=== PATIENT | female | born 1970 | race Caucasian/White ===

== ENCOUNTER 2022-06-20 19:25 | Observation (INO) | payer BC, SELFPAY ==
[2022-06-20] VITALS (13 sets, daily range): BP systolic 131–153; BP diastolic 79–97; PULSE 68–104; RESP 12–35; TEMP 36.7–37.4; O2SAT 98–100
--- NOTE | 2022-06-20 | DI.CT_ITS ---
Exam(s) CT LOWER EXTREMITY LT WO EXAM: CT LOWER EXTREMITY LT WO CLINICAL HISTORY: L ankle fracture dislocation. TECHNIQUE: Imaging Protocol: Axial computed tomography images with coronal and sagittal reformatted images were created and reviewed. CONTRAST MATERIAL: Noncontrast COMPARISON: CR,XR XR ANKLE LT COMPLETE from 06/20/2022 FINDINGS: Bones: There is an oblique fracture through the distal tibial diaphysis with a full shaft width of la teral displacement and a few adjacent tiny comminuted fragments. A few tiny fracture fragments are s een adjacent to the posterior aspect of the distal tibia. A small density beneath the tip of the med ial malleolus may represent acute fracture fragment versus and inferior spur. There is marked wide jake of the medial ankle mortise. The talar dome appears intact. Heel spurs are noted. Small ossic les adjacent to navicular. Bone island in navicular. Soft Tissues: Swelling along region of distal fibular fracture and around the ankle. No drainable c ollection. IMPRESSION: Displaced distal fibular fracture and marked widening of the medial ankle mortise. Tiny fracture fra gments seen from the posterior tibial plateau. Question of spur versus nondisplaced fracture at the tip of the medial malleolus. RADIATION DOSE DELIVERED: 415.29mGy.cm Total DLP DATA REPOSITORY: All CT scans at this facility are submitted to the National Radiology Data Registry (NRDR) Dose Index Registry (DIR) with the [employer] ([employer]). RADIATION OPTIMIZATION: All CT scans at this facility use at least one of these dose optimization te chniques: automated exposure control; mA and/or kV adjustment per patient size (includes targeted exa ms where dose is matched to clinical indication); or iterative reconstruction.
--- NOTE | 2022-06-20 19:30 | DI.RAD_ITS ---
Exam(s) XR ANKLE LT COMPLETE EXAM: XR ANKLE LT COMPLETE CLINICAL HISTORY: fall with ankle injury TECHNIQUE: 2D digital imaging was performed. Three views. COMPARISON: No exams were available for comparison FINDINGS: BONES: Fracture of the distal diaphysis of the of the fibula with full shaft width displacement later ally and few comminuted fragments. Small fracture fragments seen at the tip of the medial malleolus and adjacent to the lateral aspect of the distal tibia. Talar dome appears intact. Incidental heel spurs. No bony destructive lesion is seen. JOINTS:Marked widening of the medial ankle mortise with significant lateral displacement of the talus with respect to the distal tibia. SOFT TISSUE: Marked soft tissue swelling around the malleoli. IMPRESSION: Distal fibular fracture and marked widening of the ankle mortise. A few tiny bony fragments are note d which are likely fractured from the distal tibia. DATA REPOSITORY: RADIATION DOSE DELIVERED:
[2022-06-20] MEDS: ACETAMINOPHEN 1,000 MG/100 ML BTL 400 MG IVPB (19:52)
--- NOTE | 2022-06-20 20:09 | ED.GENADUL_ITS ---
Discharge Plan Disposition Patient Disposition: Admit to [facility] Discharge Details Clinical Impression: Closed fibular fracture Admit Date/Time: 06/20/22 20:32 Admit Provider: Reyes Walters Attending Provider: Reyes Waltesr [facility] Provider: Pilo Jennings Medical Decision Making Patient presenting to the emergency department for chief complaint of mechanical fall with injury to left ankle. Patient states she is not weightbearing. Physical exam shows obvious deformity to left ankle with displacement or dislocation medially. Exam is otherwise unremarkable with no tenderness noted throughout rest of tib-fib or foot. Will perform radiological imaging for high suspicion of fracture and/or dislocation. Patient does not want any narcotics to start with so we will give IV Tylenol. Review of radiological imaging shows a significant fracture of the fibula with displacement of the ankle. Contacted orthopedist on-call who recommended posterior splinting and CT imaging after splinting with patient to be admitted and to go to the OR tomorrow. Patient is in agreement with this plan of care due to the fact that she would have difficulty getting in home with significant fracture and pain. For splinting we did use 50 of fentanyl. Patient remained stable and was admitted to inpatient unit pending OR Imaging Data Radiologic Study: Attestation: I personally reviewed and interpreted this imaging study as follows: Imaging: X-Ray Radiologist's impression: PROCEDURE INFORMATION: Exam: XR Left Ankle Exam date and time: 06/20/2022 8:07 PM Age: 51 years old Clinical indication: Other: Fall with ankle injury TECHNIQUE: Imaging protocol: Radiologic exam of the left ankle. Views: 3 or more views. COMPARISON: No relevant prior studies available. FINDINGS: Bones/joints: Widening of the ankle mortise. Fracture of the left distal fibula through the distal 3rd of the diaphysis. Posterior calcaneal enthesophytes. Lateral view demonstrates small osseous fragment posterior to the distal tibia, donor site is not identified. Soft tissues: Soft tissue swelling. IMPRESSION: Fracture of the left distal fibula. Widening of the ankle mortise. No other fractures visualized, consider radiographs of the left tibia and fibula. HPI General Mode of arrival: wheelchair . Date/Time Provider Initiated Documentation: 06/20/22 19:34 . Limitations to Documentation: no limitations . Information obtained by: patient . History of Present Illness 51 year old F presents to the emergency department with the chief complaint of Left ankle injury, described as moderate and severe, with intensity rated at 8. Quality is described as aching and sharp, and is localized to the left and lower extremity. Patient reports no radiation. Patient started experiencing this hour(s) (1) and it has been constant. No relieving factors improve symptom(s), No exacerbating factors reported . Patient notes no other symptoms.. Patient did receive the following treatments prior to arrival, none Related Data Home Medications Medication Instructions Recorded Confirmed levothyroxine 25 mcg tablet mcg 06/20/22 Allergies Allergy/AdvReac Type Severity Reaction Status Date / Time No Known Allergies Allergy Unverified 06/20/22 19:54 General Stated Complaint: Orthopedic APURVA: 4 Review of Systems Narrative: 6 systems reviewed and unremarkable except what is marked below. Musculoskeletal Musculoskeletal: Reports arthralgias, Reports joint swelling, Reports limited range of motion, Denies numbness and Denies tingling Integumentary/Breasts Skin/Breast: Denies wounds Neurologic Neurologic: Denies numbness and Denies tingling PFSH All Active Problems (Updated 06/20/22 @ 21:28 by Pilo Jennings NP) Closed fibular fracture (Acute) Hypothyroidism (Chronic) Social History Smoking/Tobacco Use Status: Never Smoking risk assessment performed?: Yes Alcohol Intake: current Alcohol Intake frequency: a few times a week Alcohol type: wine Substance use type: does not use Do you feel safe at home: Yes Do you feel safe in your relationship?: Yes Exam Const General: cooperative and in distress moderate Nutritional Appearance: obese Orientation: alert, awake and oriented x3 Resp Effort & Inspection: normal respiratory effort, able to speak in complete sentences and no respiratory distress Cardio Rate: regular rate Rhythm: regular rhythm Pulses: normal peripheral pulses Skin General skin exam: no rashes or lesions noted Neuro General: patient alert, patient awake, patient oriented x3, moves all extremities and no focal motor deficits Sensory Exam: no sensory deficits noted Extrem Left lower extremity: knee Details: no tenderness, lower leg Details: no tenderness, ankle Details: abnormal to inspection (Obvious deformity to medial ankle), tenderness Location: of the lateral malleolus and of the medial malleolus, swelling Details: diffusely and abnormal ROM (Pain with even slight movement of ankle); no lacerations and no ecchymosis and foot Details: normal capillary refill, normal to inspection, toes with normal ROM, vascular exam Details: dorsalis pedis pulse present and normal capillary refill and motor- sensory exam Details: two point discrimination normal and light-touch normal; no abrasions, no lacerations and no ecchymosis Course Vital Signs Vital signs: Vital Signs Temperature 37.4 C 06/20/22 19:33 Pulse 104 H 06/20/22 19:33 Respiratory Rate 18 06/20/22 19:33 Blood Pressure 144/97 H 06/20/22 19:33 Pulse Oximetry 98 06/20/22 19:33 Temperature 37.4 C 06/20/22 19:33 Temperature Source Tympanic 06/20/22 19:33 Pulse 104 H 06/20/22 19:33 Respiratory Rate 18 06/20/22 19:33 Respiratory Effort Normal 06/20/22 19:37 Blood Pressure 144/97 H 06/20/22 19:33 Blood Pressure Position Supine 06/20/22 19:33 Pulse Oximetry 98 06/20/22 19:33 Oxygen Delivery Method Room Air 06/20/22 19:33 Oxygen Flow Rate 0 06/20/22 19:33 Pain Level 10 06/20/22 19:52 Procedures Orthopedic Splinting/Casting Injury #1: Side: left Lower Extremity Injury Location: ankle Lower Extremity Immobilizer: posterior splint PAWSS Have you Been Recently Intoxicated or Drunk Within the Last 30 days?: No Have you Ever Experienced Previous Episodes of Alcohol Withdrawal?: No Have you ever Experienced Withdrawal Seizures?: No Have you ever Experienced Delirium Tremens(DT)s?: No Have you ever undergone Alcohol Rehabilitation Treatment (i.e, inpt ot outpatient treatment programs)?: No Have you ever Experienced Blackouts?: No Have you ever Combined Alcohol with other Downers within the last 90 days?: No Have you ever Combined Alcohol with any other Substance of Abuse during the last 90 days?: No Positive Blood Alcohol level on Presentation? [PCS.BAL]: No Evidence of Increased Autonomic Activity (i.e. HR>120, tremor, sweating, agitation, nausea)?: No Result: 0
--- NOTE | 2022-06-20 20:33 | DI.VRAD_ITS ---
PROCEDURE INFORMATION: Exam: XR Left Ankle Exam date and time: 06/20/2022 8:07 PM Age: 51 years old Clinical indication: Other: Fall with ankle injury TECHNIQUE: Imaging protocol: Radiologic exam of the left ankle. Views: 3 or more views. COMPARISON: No relevant prior studies available. FINDINGS: Bones/joints: Widening of the ankle mortise. Fracture of the left distal fibula through the distal 3rd of the diaphysis. Posterior calcaneal enthesophytes. Lateral view demonstrates small osseous fragment posterior to the distal tibia, donor site is not identified. Soft tissues: Soft tissue swelling. IMPRESSION: Fracture of the left distal fibula. Widening of the ankle mortise. No other fractures visualized, consider radiographs of the left tibia and fibula. Dictated and Authenticated by: Indio Ramírez MD. Ordering:JASSON Daigle MD
[2022-06-20] MEDS: fentaNYL 100 MCG/2 ML VIAL 50 MCG IVP (20:39)
[2022-06-20 21:08] LABS: HCT 41.7 % (36.0-46.0); HGB 14.2 g/dL (11.2-15.7); MCH 30.9 pg (27.0-33.0); MCHC 34.1 % (32.0-36.0); MCV 91 fL (80-95); MPV 9.4 fL (8.0-11.0); Platelet Count 343 10^3/uL (130-400); RBC 4.59 10^6/uL (3.93-5.22); RDW 12.8 % (11.7-14.6); RDW-SD 41.7 fL
[2022-06-20] MEDS: Normal Saline 1,000 ML 80 ML IV (21:14)
[2022-06-20 21:20] LABS: Source Nasal/Nares
[2022-06-20 21:25] LABS: Hemoglobin A1C 6.7 % (<5.7)
--- NOTE | 2022-06-20 21:29 | DI.VRAD_ITS ---
PROCEDURE INFORMATION: Exam: CT Left Lower Extremity Without Contrast; Lower Leg Exam date and time: 06/20/2022 9:03 PM Age: 51 years old Clinical indication: Injury or trauma; Fall; Fracture, traumatic; Displaced; Left; Shaft of the fibula; Injury date: 06/20/22; Injury details: L ankle FX, dislocation TECHNIQUE: Imaging protocol: CT of the left lower extremity without contrast was performed. Exam focused on the lower leg. Radiation optimization: All CT scans at this facility use at least one of these dose optimization techniques: automated exposure control; mA and/or kV adjustment per patient size (includes targeted exams where dose is matched to clinical indication); or iterative reconstruction. COMPARISON: CR XR ANKLE LT COMPLETE 06/20/2022 8:07 PM FINDINGS: Bones/joints: Laterally displaced fracture of the left distal fibular diaphysis. Widening of the ankle mortise. Posterior calcaneal enthesophytes. Linear densities posterior to the left distal tibia, indeterminate clinical significance. Soft tissues: Soft tissue swelling/infiltration. IMPRESSION: Fracture of the left fibular diaphysis with lateral displacement. No other acute fractures identified. Dictated and Authenticated by: Indio Ramírez MD. Ordering:CHANEL Chambers MD
[2022-06-20 21:34] LABS: ALT 70 U/L (14-59); AST 35 U/L (15-37); Albumin 3.7 g/dL (3.4-5.0); Alkaline Phosphatase 75 U/L (46-116); BUN 13 mg/dL (7-18); Bilirubin, Total 0.3 mg/dL (0.2-1.0); CREATININE 0.8 mg/dL (0.55-1.02); Calcium 8.8 mg/dL (8.5-10.1); Chloride 103 mmol/L (98-107); Estimated GFR 89.15 (mL/min/1.73m2); Glucose 118 mg/dL (74-106); Sodium 138 mmol/L (136-145); TSH (W/Ref FT4) 6.14 uIU/mL (0.36-3.74); Total Protein 8.1 g/dL (6.4-8.2)
[2022-06-20] MEDS: Ketorolac 15 MG/ML VIAL IVP (21:38)
[2022-06-20 21:46] LABS: Vitamin D 25 Total 10.7 ng/mL (30-100)
[2022-06-20 21:50] LABS: FREE T4 1.12 ng/dL (0.76-1.46)
[2022-06-20 21:52] LABS: COVID-19 PCR Negative (Negative)
[2022-06-20] MEDS: HYDROmorphone 2 MG/ML SYR 0.5 MG IVP (22:13)
[2022-06-21] VITALS (10 sets, daily range): BP systolic 104–143; BP diastolic 52–88; PULSE 58–86; RESP 12–20; TEMP 36–36.7; O2SAT 96–99; BMI 41.0
[2022-06-21] MEDS: HYDROmorphone 2 MG/ML SYR 0.5 MG IVP ×3 (00:18→08:51)
[2022-06-21] MEDS: Ketorolac 15 MG/ML VIAL IVP ×4 (03:00→22:14)
--- NOTE | 2022-06-21 05:42 | OCONE_ITS ---
Date of service: 06/21/22 Time of Service: 07:35 History of Present Illness History of Present Illness Chief Complaint: Left Ankle Pain and Deformity Narrative: Cordelia slipped on some stairs yesterday resulting in a twisting type injury to the left ankle. She had immediate pain and deformity. She was brought to the emergency department and diagnosed with a left ankle fracture dislocation. I was called in consultation last night. A gentle reduction was performed and she was splinted and admitted overnight for pain control and likely surgical fixation. She reports that the pain has been intermittent about the left ankle depending on positioning. She denies any numbness or tingling although she did feel some initially when it happened. When it happened she also reported hearing significant pops and a tearing sensation about the left ankle. She denies any issues with this left ankle previously. She is otherwise active. She only has hypothyroidism as her medical issue and is unaware of how much levothyroxine she takes. She was diagnosed with early diabetes and has been able to manage that mostly with diet control and modification. 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 She denies any baseline neuropathy. Consults Consult date: 06/20/22 Requesting physician: Pilo Jennings Consult Reason Left Ankle Fracture-Dislocation Assessment and Plan Assessment and plan (1) Fracture dislocation of left ankle: Status: Acute Assessment and plan: Cordelia is a 51-year-old who suffered a fall yesterday resulting in a left ankle fracture dislocation. This would benefit from surgical fixation. I discussed this with her in detail. I reviewed that the fracture of the fibula is only one part of this. Unfortunately, this is associated with significant ligamentous injury about the ankle both medially and between the tibia and the fibula. I discussed treatment options and recommend surgical fixation to include fibular fixation along with syndesmotic fixation. I would also consider medial, deltoid ligament, fixation as well given the amount of displacement. I reviewed the technical aspects of the surgery. I discussed some of the risk to include bleeding, infection, pain, stiffness, malunion, nonunion, loss of reduction, hardware failure, blood clot, need for repeat procedures. Despite these risk, s he elects to proceed. I also spent some time reviewing the timeframe for rehabilitation. All of her questions were answered. We will move forward with surgery today, likely later this afternoon. NPO. She does have low vitamin D levels and I would recommend we supplement vitamin D and calcium in the postoperative period. (2) Diabetes mellitus type 2, diet-controlled: Status: Acute Assessment and plan: Currently diet controlled. Will check blood sugars while here in the hospital. Review of Systems All systems reviewed & are unremarkable except as noted in HPI and below PFSH All Active Problems (Updated 06/21/22 @ 08:01 by Reyes Walters MD) Diabetes mellitus type 2, diet-controlled (Acute) Fracture dislocation of left ankle (Acute) Closed fibular fracture (Acute) Hypothyroidism (Chronic) Social History Smoking/Tobacco Use Status: Never Smoking risk assessment performed?: Yes Alcohol Intake: current Alcohol Intake frequency: a few times a week Alcohol type: wine Substance use type: does not use Do you feel safe at home: Yes Do you feel safe in your relationship?: Yes Exam Const General: cooperative, healthy appearing, comfortable and no acute distress Resp Auscultation: clear to auscultation bilaterally Cardio Rate: regular rate Rhythm: regular rhythm Extrem Other: Left leg is in a splint. Toes are warm and well-perfused. She is able to demonstrate active toe extension and flexion. She endorses full sensation over the deep and superficial peroneal nerve and tibial nerve. No pain to palpation about the knee or the proximal left leg. No pain about the thigh. No pain with hip internal or external rotation. No skin abrasions. Results Last Vital Signs Temp 36.7 C 06/21/22 03:47 Pulse 83 06/21/22 03:47 Resp 20 06/21/22 03:47 BP 130/78 06/21/22 03:47 Pulse Ox 97 06/21/22 03:47 Labs 06/20/22 20:13 06/20/22 20:13 Labs: Laboratory Results - last 24 hr 06/20/22 06/20/22 06/20/22 20:13 20:13 20:13 WBC RBC Hgb Hct MCV MCH MCHC RDW Plt Count MPV Sodium 138 Potassium 4.0 Chloride 103 Carbon Dioxide 23.0 Anion Gap 12.0 H BUN 13 Creatinine 0.8 Est GFR (CKD-EPI 2020) 89.15 Glucose 118 H Hemoglobin A1c Calcium 8.8 Total Bilirubin 0.3 AST 35 ALT 70 H Alkaline Phosphatase 75 Total Protein 8.1 Albumin 3.7 Cancelled 25-OH Vitamin D Total 10.7 L TSH 6.14 H Free T4 1.12 COVID-19 Source SARS-CoV-2 (PCR) 06/20/22 06/20/22 06/20/22 20:13 20:13 21:16 WBC 9.90 RBC 4.59 Hgb 14.2 Hct 41.7 MCV 91 MCH 30.9 MCHC 34.1 RDW 12.8 Plt Count 343 MPV 9.4 Sodium Potassium Chloride Carbon Dioxide Anion Gap BUN Creatinine Est GFR (CKD-EPI 2020) Glucose Hemoglobin A1c 6.7 H Calcium Total Bilirubin AST ALT Alkaline Phosphatase Total Protein Albumin 25-OH Vitamin D Total TSH Free T4 COVID-19 Source Nasal/Nares SARS-CoV-2 (PCR) Negative Imaging Imaging Studies: X-ray of the left ankle demonstrates an ankle fracture dislocation with posterior lateral displacement of the talus. There is an oblique distal third fibular shaft fracture. There appears to be some small fragmentation over the posterior aspect of the medial tibia and questionably over the medial malleolus. However, there is no clear posterior malleolar or medial malleolar fragment. CT scan of the left ankle and leg demonstrates the aforementioned fracture. There is some fragmentation seen at the posterior medial aspect of the tibia. However, is not associated with any true posterior malleolar fracture. There is no articular involvement. There appears to be an old fracture or avulsion injury to the tip of the medial malleolus.
[2022-06-21] MEDS: ceFAZolin 1 GM/50 ML BAG IVPB (05:45)
[2022-06-21] MEDS: ACETAMINOPHEN 1,000 MG/100 ML BTL 400 MG IVPB ×2 (06:45→11:49)
--- NOTE | 2022-06-21 08:54 | INITIAL_ITS ---
- If Service Date Differs Date of service: 06/21/22 Time of Service: 08:54 Care Management Initial Assess REASON FOR HOSPITALIZATION:: left ankle fracture PAST MEDICAL HISTORY/PAST SURGICAL HISTORY:: All Active Problems (Updated 06/21/22 @ 08:01 by Reyes Walters MD). Diabetes mellitus type 2, diet- controlled (Acute). Fracture dislocation of left ankle (Acute). Closed fibular fracture (Acute). Hypothyroidism (Chronic) PREVIOUS FUNCTIONAL STATUS/SOCIAL/FAMILY SUPPORTS:: Cordelia recently moved from [facility] to [place], [place] She works for [employer] in the [facility]. Currently Cordelia is staying with a friend but has rented an apartment in the [facility] available on July 17. She is independent at baseline and does not receive any community services.She has one 19 year old daughter who attends college. CURRENT FUNCTIONAL STATUS:: Cordelia had just returned from surgery when CM met with her. She was still sleepy and slow to respond to questions. Cordelia did share that [place] and will be moving to the [facility] in July. She has not seeen PT yet but expects to work with them tomorrow and likely be discharged home later in the day. ADVANCE DIRECTIVES:: none on file Has patient been provided with info about the portal/API?: Yes Did the patient sign up for the portal?: No CODE STATUS:: Full Code INSURANCE COVERAGE / FINANCIAL ISSUES:: /[facility] CURRENT HOME/COMMUNITY SERVICES/EQUIPMENT:: none PRIMARY CARE PHYSICIAN:: none locally POTENTIAL DISCHARGE NEEDS:: follow up with local orthopedic surgeon PATIENT/FAMILY EDUCATION NEEDS:: REview of discharge instructions, activity, limitations, follow up plan, discuss Ask Me Three. TRANSPORTATION:: via private vehicle with family PLAN:: Anticipate that Cordelia will be discharged home when cleared by her provider. She will follow up with her surgeon and plan of care and transport with her daughter. Cordelia does not have a local PCP but as she is soon moving to the [facility], will likely establish with a new PCP there. CM will follow and support discharge needs.
--- NOTE | 2022-06-21 13:23 | W.ANESPRE ---
General Info Date of Service Date Performed: 06/21/22 Height: 5 ft Weight: 95.2 kg Body Mass Index (BMI): 41.0 Surgical Procedure: Operation Date: 06/21/22 14:55 Proposed Procedure Side Surgeon p Ankle ORIF Left Reyes Walters MD Meds Allergies and Home Medications Allergies Allergy/AdvReac Type Severity Reaction Status Date / Time No Known Allergies Allergy Unverified 06/20/22 19:54 Home Medication Medication Instructions Recorded levothyroxine 25 mcg tablet mcg 06/20/22 Current Visit Medications: Current Medications Generic Name Dose Route Start Last Admin Trade Name Freq PRN Reason Stop Dose Admin Dextrose 0 gm 06/21/22 08:06 Glucose Oral Gel 15 Gm/37.5 Gm Tube PO DIRECTED PRN Dextrose/Water 0 gm 06/21/22 08:06 Dextrose 50%-Water 25 Gm/50 Ml Syr IVP DIRECTED PRN Hydromorphone HCl 0.5 mg 06/20/22 20:32 06/21/22 08:51 Hydromorphone 2 Mg/Ml Syr IVP 0.25 ml Q2H PRN Administration Sodium Chloride 1,000 mls @ 80 mls/hr 06/21/22 06:00 06/20/22 21:14 Saline 1000ml Bag IV 80 mls/hr INFUSION ABELARDO Administration Acetaminophen 1,000 mg in 100 mls @ 400 mls/hr 06/21/22 06:00 06/21/22 11:49 Ofirmev IVPB 400 mls/hr Q6H ABELARDO Administration Insulin Aspart 0 units 06/21/22 12:00 06/21/22 12:05 Insulin Aspart 300 Units/3 Ml Pen SC Not Given 0800,1200,1700 [facility] Protocol Ketorolac Tromethamine 15 mg 06/21/22 10:00 06/21/22 11:14 Ketorolac 15 Mg/Ml Vial IVP 06/26/22 09:59 15 mg Q6H ABELARDO Administration Oxycodone HCl 5 mg 06/21/22 05:35 Oxycodone 5 Mg Tab PO Q4H PRN PRN Sodium Chloride 0 ml 06/20/22 19:34 Normal Saline Flush 10 Ml Syr IVP PRN PRN PFSH Active Problems Active Problems: Problem Status Onset Code Diabetes mellitus type 2, diet-controlled E11.9 Fracture dislocation of left ankle S82.892A Closed fibular fracture S82.409A Hypothyroidism E03.9 Medical History Medical History Comments:: Asthma per the patient Tobacco Smoking/Tobacco Use Status: Never Alcohol Alcohol Intake: current Alcohol intake frequency: a few times a week Alcohol type: wine Substance Use Substance use type: does not use Vital Signs and Lab Results Vital Signs Most Recent Vital Signs in EMR: Most Recent Vital Signs Temp Pulse Resp BP Pulse Ox 36.5 C 77 17 143/88 H 98 06/21/22 11:17 06/21/22 11:17 06/21/22 11:17 06/21/22 11:17 06/21/22 11:17 Point of Care Results Point of Care Results: Finger Stick Blood Glucose 113 06/21/22 12:05 Lab Results 06/20/22 20:13 06/20/22 20:13 Blood Type / Crossmatch: No Data to Display Complete Blood Count: White Blood Count 9.90 10^3/uL (4.4-10.8) 06/20/22 20:13 Red Blood Count 4.59 10^6/uL (3.93-5.22) 06/20/22 20:13 Hemoglobin 14.2 g/dL (11.2-15.7) 06/20/22 20:13 Hematocrit 41.7 % (36.0-46.0) 06/20/22 20:13 Platelet Count 343 10^3/uL (130-400) 06/20/22 20:13 Complete Metabolic Panel: Sodium 138 mmol/L (136-145) 06/20/22 20:13 Potassium 4.0 mmol/L (3.5-5.1) 06/20/22 20:13 Chloride 103 mmol/L (98-107) 06/20/22 20:13 Carbon Dioxide 23.0 mmol/L (21.0-32.0) 06/20/22 20:13 BUN 13 mg/dL (7-18) 06/20/22 20:13 Creatinine 0.8 mg/dL (0.55-1.02) 06/20/22 20:13 Est GFR (CKD-EPI 2020) 89.15 (mL/min/1.73m2) 06/20/22 20:13 Calcium 8.8 mg/dL (8.5-10.1) 06/20/22 20:13 Albumin 3.7 g/dL (3.4-5.0) 06/20/22 20:13 Glucose 118 mg/dL (74-106) H 06/20/22 20:13 Hemoglobin A1c 6.7 % (<5.7) H 06/20/22 20:13 Liver Function Panel: Alanine Aminotransferase (ALT/SGPT) 70 U/L (14-59) H 06/20/22 20:13 Aspartate Amino Transf (AST/SGOT) 35 U/L (15-37) 06/20/22 20:13 Coagulation Panel: No Data to Display Cardiac Panel: No Data to Display Arterial Blood Gas: No Data to Display Venous Blood Gas: No Data to Display Pancreas Panel: No Data to Display Thyroid Panel: Thyroid Stimulating Hormone (TSH) 6.14 uIU/mL (0.36-3.74) H 06/20/22 20:13 Infectious Disease: Coronavirus (COVID-19)(PCR) Negative (Negative) 06/20/22 21:16 Coronavirus 2019 Source Nasal/Nares 06/20/22 21:16 Blood Cultures: No Data to Display Toxicology Panel: No Data to Display Panel: No Data to Display Anesthesia Assessment and Plan Anesthesia History Personal History: No History of Anesthesia Complications Family History: No Family History of Anesthesia Complications Exercise Tolerance Exercise Tolerance: Metabolic Equivalents>4 Pertinent Negatives Pertinent Negatives: No Symptoms of GERD, No Major Cardiovascular Symptoms or Complaints and No History of CVA/TIA Cardiac & Pulmonary Exam Cardiac Exam: Normal S1/S2 Heart Sounds Pulmonary Exam: Clear Bilateral Breath Sounds Implantable Cardiac Device Does patient have a Pacemaker or an ICD?: No Airway Exam Known Difficult Airway: No Mallampati Class: 2 Mouth Opening: Normal (> 3cm) Thyromental Distance: Greater than 3 cm Neck Range of Motion: Full ROM Neck Circumference: Normal Teeth Condition: Normal Dentition ASA Classification ASA Score: ASA 2 Emergency Case?: No NPO Status NPO Status: NPO Clears >2 hours, Solids >8 hours Status Status: Not Relevant due to Medical History (Per patient no period for 3-4 years. ) Anesthesia Plan Resuscitation Status: Full Code Anesthesia Technique: General Anesthesia Airway Planned: LMA Monitors Used: Standard Monitors
--- NOTE | 2022-06-21 13:30 | DI.RAD_ITS ---
Exam(s) XR ANKLE LT 2V EXAM: XR ANKLE LT 2V CLINICAL HISTORY: Fracture dislocation of left ankle:. TECHNIQUE: 2D and realtime digital imaging was performed. COMPARISON: No exams were available for comparison FINDINGS: A fixation plate is now seen along the distal fibula. The fracture alignment is anatomic. The ankle mortise is no longer widened. A small bony fragment is seen seen from the posterior malleolus. Please see procedure note for details. Fluoro time: 41 seconds RADIATION DOSE DELIVERED: Eliotr=0.96 mGy
[2022-06-21] MEDS: Lactated Ringers 1,000 ML 30 ML IV (13:56)
[2022-06-21] MEDS: Bupivacaine 0.25% Pres-Free W/EPI 30 ML VIAL (14:29)
--- NOTE | 2022-06-21 15:22 | W.PM.OP ---
Date of service: 06/21/22 Time of Service: 15:22 Operative Note Operative Note DATE OF PROCEDURE: 06/21/22 PRE-OP DIAGNOSIS: Left Ankle Fracture POST-OP DIAGNOSIS: same PROCEDURE: Open Reduction and Internal Fixation of Left Bimalleolar Equivalent Ankle Fracture - Distal Fibula and Syndesmosis SURGEON: Reyes Walters DEPORTATION OFFICER: Esequiel Woody ANESTHESIA TYPE: General LMA/ETT Refer to Anesthesia Record ESTIMATED BLOOD LOSS: 50 PATHOLOGY: none sent TOURNIQUET TIME: 0 COMPLICATIONS: None Patient was transported to: PACU Patient's condition: stable Indications: Cordelia is a 51 yo female who presented to the Emergency Department after a fall. X-rays confirmed the diagnosis of a left ankle fracture. I reviewed the possible treatment options and given the fracture, I recommended operative fixation. I discussed the technical details of the surgery. I reviewed the risks such as bleeding, infection, pain, stiffness, malunion, nonunion, hardware prominence, hardware faiilure, malrotation, damage to nerves and vessels, blood clot. Despite these risks, [gender] agreed to proceed. Findings: There was a highly unstable fracture of the distal shaft of the fibula. This was reduced with direct visualization and secured with a one third tubular plate. With the fibula anatomically reduced the tibiotalar joint also was reduced although with syndesmotic widening on stress. Thus, syndesmotic fixation was performed with a Synthes Fibulink device without any gapping under stress. Procedure Description: Cordelia was greeted in the preoperative area. Consent was previously reviewed and signed. Once in the operating room, anesthesia was administered. The patient was transferred to the fracture table in the supine position. She was positioned in the supine position with the operative side placed onto a bone foam ramp. All bony prominences were well padded. Arms were placed out to the side, padded, and secured. Prophylactic antibiotics, Cefazolin 2 grams, was given for prophylactic antibiotics. A timeout was performed for safe surgery. The left leg was prepped with Chloraprep. The leg was draped with a stockinette and extremity drape. The location of the fracture the fibula was marked on the skin. The proposed surgical site was marked and then this area was anesthetized with 0.25% bupivacaine with epinephrine. A longitudinal incision was then made overlying the posterior half of the fibula. This was taken down sharply to the skin. Blunt dissection was carried out over to the fascia of the lateral and anterior aspect of the fibula. There is no superficial peroneal nerve. Starting with the defect of the fascia at the level of the fracture I then extended the fascial incision proximally and distally. This was done under direct visualization ensuring that there is no nerve component. With the fascia now open the fracture is identifiable. There is gross instability of the fibula. Using a thomas elevator was able to clear off periosteal coverings of the fibula. The fracture edges were debrided of any early fracture healing. Using 2 lobster claw clamps I was able to reduce the fracture fragments anatomically, keying in the jagged edges to their host. An 8 hole one third tubular plate was then placed over the lateral aspect the fibula and secured against the bone with 2 lobster-claw clamps, also keeping the fracture reduced. X-ray was utilized to confirm appropriate position of the plate such that the most distal hole was at the level of the proposed syndesmotic fixation. I then placed two 3.5 mm cortical screws, 1 proximal and 1 distal to the fracture. These had excellent fixation and clamps were removed. X-ray showed anatomic reduction of the fibular fracture as well as the fibula distally. An additional 2 screws proximally and 2 screws distally, 3.5 mm cortex, were then placed with excellent purchase. There is still some syndesmotic instability and therefore a syndesmotic fixation was performed using the Synthes Fibulink system. The screw path was prepared with a K wire under fluoroscopic visualization. This was then drilled to the appropriate depth with the graduated drill. The Fibulink screw was then placed into the distal tibia and the Fibulink system was engaged and tightened. This was checked to ensure appropriate tension to prevent any gapping of the syndesmosis but also to not over tighten allowing full dorsiflexion. This was checked under direct visualization as well as with the fluoroscopy. A stress test was also performed which did not show any gapping. Given that the talus was well reduced without any gapping medially, I did not perform any medial repair. The deep tissues were then further injected with 0.25% bupivacaine with epinephrine. The wound was thoroughly irrigated. The fascia and deep tissue was closed with 0 Vicryl. The deep subcutaneous layers were reapproximated with 2-0 and 3-0 Vicryl in a buried fashion. The skin was closed with a 4-0 nylon. A short leg splint was then applied. At the end of the case, all counts were correct. Cordelia tolerated the procedure well without known complication and was taken to the PACU for recovery. Physical therapy will start post-operatively, touchdown weightbearing with a splint. Anticoagulation will start within 12-24 hours. 3 doses of post-operative antibiotics for prophylaxis will be administered.
[2022-06-21] MEDS: fentaNYL 100 MCG/2 ML VIAL IVP (15:30)
--- NOTE | 2022-06-21 15:31 | W.ANESPOSTOP ---
Postoperative Evaluation Date, Time and Location Date Performed: 06/21/22 Time Performed: 15:31 Patient Location: PACU Vital Signs Most Recent Imported Vital Signs: Most Recent Vital Signs Temp Pulse Resp BP Pulse Ox 36.5 C 77 17 143/88 H 98 06/21/22 11:17 06/21/22 11:17 06/21/22 11:17 06/21/22 11:17 06/21/22 11:17 Pain Score Most Recent Pain Score: Most Recent Pain Score Pain Level [Left Ankle] 3 06/20/22 23:05 Pain Level 3 06/21/22 11:49 Assessment Mental Status: Arousable with meaningful communication Airway and Respiratory Function: Patent airway with normal (patient baseline) respiratory exam Cardiovascular Function: Hemodynamically Stable Hydration Status: Adequately Hydrated Nausea & Vomiting: No Nausea or Vomiting Pain: Pain is tolerable per patient Peripheral Nerve Block: Patient did not receive a nerve block
[2022-06-21] MEDS: Acetaminophen 325 MG TAB 650 MG PO (19:29)
[2022-06-22] MEDS: ceFAZolin 1 GM/50 ML BAG IVPB ×2 (02:10→09:38)
[2022-06-22] MEDS: Ketorolac 15 MG/ML VIAL IVP ×2 (04:50→10:14)
[2022-06-22 07:29] VITALS: BP 143/87; PULSE 67; RESP 16; TEMP 36.1; O2SAT 97
--- NOTE | 2022-06-22 08:25 | CHAPLAIN ---
Cordelia was waiting to have surgery when I visited yesterday morning. She was in touch with family by phone. She asked about getting washed up so I let the FAREBOX REPAIRER know that. According to Care Management notes, Cordelia moved to the area recently from [place] and will be moving to an apartment in [place] early next month.
[2022-06-22 08:30] VITALS: BP 167/83; PULSE 85; RESP 16; TEMP 37; O2SAT 98
[2022-06-22] MEDS: HYDROmorphone 2 MG/ML SYR 0.5 MG IVP (08:40)
[2022-06-22 11:28] VITALS: BP 138/79; PULSE 85; RESP 16; TEMP 36.8; O2SAT 94
--- NOTE | 2022-06-22 12:25 | DSE_ITS ---
Date of service: 06/22/22 Time of Service: 08:30 DS: Diagnosis Discharge Diagnosis (1) Fracture dislocation of left ankle: Status: Acute (2) Diabetes mellitus type 2, diet-controlled: Status: Acute Discharge Plan Disposition Patient Disposition: Home Condition: Improving Discharge Details Reason For Visit: Left Ankle Fracture Dislocation Admit Date/Time: 06/20/22 20:32 Admit Provider: Reyes Walters Attending Provider: Reyes Walters [facility] Hospital Course: Patient was admitted to the medical/surgical floor from the emergency department for pain management. On HD#2,Alen Storey was taken to the operating room for ankle fracture fixation. She was admitted to the floor following the procedure. The surgery was tolerated well without any notable medical, surgical, or anesthetic complications. Mobilization began postoperatively. She was voiding spontaneously. Vitals were stable. Physical therapy worked with the patient and was cleared for discharge home. No acute medical issues. Pain was controlled on oral regimen. Home Meds and New Rx's Prescriptions: New acetaminophen 500 mg tablet 1,000 mg PO Q8H PRN (Reason: pain) Qty: 90 3RF aspirin 81 mg tablet,delayed release (DR/EC) 81 mg PO BID Qty: 60 0RF celecoxib 200 mg capsule 200 mg PO BID PRN (Reason: pain) Qty: 60 1RF oxycodone 5 mg tablet 5 mg PO Q6H PRN (Reason: pain) Qty: 12 0RF Continued levothyroxine 25 mcg Tablet Discharge Instructions Additional Instructions: Ankle Fracture Fixation Discharge Instructions Activity: You are TOUCHDOWN WEIGHT BEARING. You should keep the leg elevated as much as possible. You may wiggle your toes and move your hip and knee. Dressings: You should keep your splint clean and dry. Do NOT get wet or dirty. If you have issues with your splint, please call the office at [phone] or the hospital after hours. Medications: - You should take Tylenol and anti-inflammatory Celebrex as your primary pain control medications. If the Celebrex is too expensive or not covered, please call the office for another alternative (Advil/Ibuprofen or Naproxen/Aleve) - You have been prescribed a stronger pain medication Oxycodone for breakthrough pain, take as needed as prescribed. - You will be taking Aspirin 81mg twice a day for DVT prevention unless instructed otherwise. - If you have constipation you should take Colace or Miralax (both [id number]). It takes most people 3-4 days to have a bowel movement. Follow-up: 2 weeks If you have any acute concerns or questions, please do not hesitate to contact the office at [phone]. You may contact Dr. Walters with any questions after hours through the hospital at [phone] or on his cell phone at [phone]. Stand Alone Forms: Nursing Discharge Form Referrals: Reyes Walters MD [ [facility] STAFF PHYSICIAN] - Activity:: Activity as Tolerated Equipment/Supplies:: Crutches Diet:: As Tolerated Discharge Orders Discharge Orders: Discharge Order (Routine); Ordered 06/22/22 Ordered By: Reyes Walters DS: Summary Time Spent with Patient providing and/or coordinating discharge services: Less than 30 minutes Status at Discharge Functional status at discharge: uses cane/walker Overall status at discharge: patient is progressing back to baseline Mental Status: mental status grossly normal Speech and Movement: speech and movement normal Mood: congruent mood Affect: normal affect Exam Narrative Exam Narrative: Sitting up in the bed. NAD. AAOx3. LLE dressing c/d/i. +EHL/FHL. SILT DP/SP/Tib. CR < 2 sec. Psych Mental Status: mental status grossly normal Speech and Movement: speech and movement normal Mood: congruent mood Affect: normal affect DS: Data Vitals/I&O Vitals and I&O: Vital Signs Temperature 36.8 C 06/22/22 11:28 Temperature Source Tympanic 06/22/22 11:28 Pulse 85 06/22/22 11:28 Pulse Rhythm Regular 06/22/22 08:48 Pulse 93 H 06/20/22 21:20 Respiratory Rate 16 06/22/22 11:28 Respiratory Effort Normal, Non-Labored 06/22/22 08:48 Respiratory Depth Normal 06/22/22 08:48 Respiratory Pattern Normal 06/22/22 08:48 Blood Pressure 138/79 06/22/22 11:28 Blood Pressure Mean 95 06/20/22 20:50 Blood Pressure Position Supine 06/20/22 19:33 Pulse Oximetry 94 06/22/22 11:28 Respiratory End-tidal CO2 34 06/21/22 16:04 Oxygen Delivery Method Room Air 06/22/22 11:28 Oxygen Flow Rate 0 06/22/22 11:28 Pain Level 3 06/22/22 11:08 Comment pt asleep 06/22/22 03:34 Intake & Output 06/21/22 06/22/22 06/22/22 23:59 11:59 23:59 Intake Total 2190 / 2290 100 / 100 Output Total 900 / 1600 600 / 600 Balance 1290 / 690 -500 / -500 Weight 95.2 kg Intake: IV 2150 / 2250 100 / 100 Oral 40 / 40 Output: Urine 900 / 1600 600 / 600 Other: Urine Color Pale Pale Yellow Urine Appearance Clear Clear Urine Odor Strong None Emesis Description None Voiding Methods Bedside Commode Bedside Commode [facility] All Active Problems Asthma (Chronic) Per patient report. Diabetes mellitus type 2, diet-controlled (Acute) Fracture dislocation of left ankle (Acute) Closed fibular fracture (Acute) Hypothyroidism (Chronic) Social History Smoking/Tobacco Use Status: Never Smoking risk assessment performed?: Yes Alcohol Intake: current Alcohol Intake frequency: a few times a week Alcohol type: wine Substance use type: does not use Do you feel safe at home: Yes Do you feel safe in your relationship?: Yes Time Spent with Patient Time Spent with Patient: <45 minutes Time was spent: ordering medications,tests, procedures, counseling the patient and care coordination
[2022-06-22] MEDS: Acetaminophen 325 MG TAB 650 MG PO (13:25)
--- NOTE | 2022-06-22 15:10 | CMDISCH_ITS ---
- If Service Date Differs Date of service: 06/22/22 Time of Service: 15:10 LACE Index Scoring Tool - Questions: Length of Stay (in days): 2 Acuity (Admit via E.D.?): Yes Comorbidities: Diabetes w/o Complication E.D. Visits: 1 - Answers: Total Score: 7 Risk of Readmission: Low Risk Care Management Discharge Reason for Hospitalization: left ankle fracture Discharge Plan: Cordelia will be discharged home with no new services. She will follow up with her surgeon and plan of care and transport with her daughter. Cordelia does not have a local PCP but as she is soon moving to the [facility], will likely establish with a new PCP there. Patient/Family Education Needs: Review of discharge instructions, activity, limitations, follow up plan, discuss Ask Me Three.
--- NOTE | 2022-06-22 17:20 | PT.INIE ---
Date of service: 06/22/22 Time of Service: 09:20 PT Notes Visit Reasons: Left Ankle Fracture Dislocation Physical Therapy Inpatient Initial Evaluation Date: 06/23/2022 Referring Doctor: Reyes Bowles MD PT Orders: PT CONSULT: S/P ortho surgery. S/P L ankle ORIF. TDWB L LE. Precautions: Fall. Standard. TDWB on the L LE with AD. Patient Profile/Admitting Diagnosis: Patient is a 51-year-old female who sustained a L bimalleolar equivalent ankle fracture S/P ORIF on postoperative day 1. PMHX: All Active Problems?(Updated 06/21/22 @ 08:01 by Reyes Walters MD) Diabetes mellitus type 2, diet-controlled (Acute) Fracture dislocation of left ankle (Acute) Closed fibular fracture (Acute) Hypothyroidism (Chronic) Social History/Home Situation: Independent with all aspects of ADLs prior to surgery. Has 4-5 stone steps without rails to enter that leads onto a foyer and then has another 4-5 steps with rails in the house. HAs an alternate 2 steps with rails on the side entrance of the house. Equipment Owned/DME: None Subjective: Feels much more stable using the walker; unstable with the bilateral axillary crutches. States that hse has family memebers who will be able to help out at home. Objective: General Observation: Supine in bed. Short posterior leg splint covered with dressing and secured with JOURDAN wraps in the L leg. Mental Status: Alert and oriented as to person, place, time, and purpose. Able to pay attention, focus, and respond appropriately. Pain: 2-3/10 in L LE during ambulation activity. Vital Signs: WNL as closely monitored by nursing staff ROM: Right Upper Extremity: Shoulder Flexion WFL. Shoulder abduction WFL. Elbow flexion WFL. Wrist flexion WFL. Functional opening and closing of hand WFL. Left Upper Extremity: Shoulder Flexion WFL. Shoulder abduction WFL. Elbow flexion WFL. Wrist flexion WFL. Functional opening and closing of hand WFL. Right Lower Extremity: Hip flexion WFL. Hip abduction WFL. Knee flexion WFL. Ankle dorsiflexion WFL. Ankle plantarflexion WFL. Left Lower Extremity: Hip flexion WFL. Hip abduction WFL. Knee flexion NT. Ankle dorsiflexion NT. Ankle plantarflexion NT. Strength: Right Upper Extremity: Shoulder flexors 5/5. Shoulder abductors 5/5. Elbow flexors 5/5. Elbow extensors 5/5. Airplane Pilot strong. Left Upper Extremity: Shoulder flexors 5/5. Shoulder abductors 5/5. Elbow flexors 5/5. Elbow extensors 5/5. Airplane Pilot strong. Right Lower Extremity: Hip flexors 5/5. Hip abductors 5/5. Knee flexors 5/5. Knee extensors 5/5. Ankle dorsiflexors 5/5. Ankle plantarflexors 5/5. Left Lower Extremity: Hip flexors 4/5. Hip abductors 4/5. Knee flexors NT. Knee extensors NT. Ankle dorsiflexors NT. Ankle plantarflexors NT. Bed Mobility/Transfers: Supine to sit independent Sit to supine independent Sit to stand independent with FWW Stand to sit independent with FWW Bed to bedside commode independent with FWW Bedside commode to bed independent with FWW Bed to reclining chair with independent with FWW Reclining chair to bed with independent with FWW Gait: 3-point gait pattern using bilateral axillary crutches for 50 feet with stand by assist. TDWB with FWW with modified independent with 50 feet. Required minimal cueing for correct and recommended gait pattern. Reports 2-3/10 in the L LE but resolved with rest. Balance: Static Sitting: Normal Dynamic Sitting: Normal Static Standing: Fair Dynamic Standing: Fair Special Tests: Mobility Limitations Standardized Measure [facility] AM-PAC 6 clicks Basic Mobility Inpatient Short Form: Raw Score: 23 CMS Score: 11% deficit Informed Consent/Education: Patient was instructed in purpose of PT consult and plan of care. Agreeable to proceed with established PT POC to achieve personal goals. Assessment: Motivated to be as independent as she can be. Anxious about using crutches as she does not feel stable enough with the recommended WB precaution. Prefers to use the FWW. Patient presents with clinical signs and symptoms consistent with current/admitting diagnoses that have resulted to mobility limitations, gait instability, generalized weakness, and overall ADL decline as demonstrated by the following impairment level findings: 1. Decreased strength to L legmajor muscle groups 2. Impaired sitting/standing balance 3. Impaired activity tolerance 4. Limitation of joint range of motion in L ankle Impairments are contributing to the following functional limitations: 1. Difficulty with ambulation without assistive device 2. Increased completion time for mobility ADL performance 3. Increased risk for falls 4. Difficulty with managing steps alone safely Patient is assessed as a 00376 moderate complexity based on the following: History: 51-year-old female with past medical history as indicated above Examination: Demonstrable impairment in strength, balance, and mobility level with underlying impairments and functional limitations as exhibited above as well as deficit score of 11% utilizing the [facility] Mobility Inpatient Short Form Presentation: Evolving Decision Makin moderate complexity Goals: N/A. PT evaluation only and 1 treatment session for functional mobility training and HEP instruction. Plan of Care/Treatment Plan: N/A. PT evaluation only and 1 treatment session for functional mobility training and HEP instruction. DISCHARGE RECOMMENDATIONS: [] Home with no services [] [X] Home with services. Patient will benefit from home health PT services in order to progress mobility level using least restrictive assistive ambulatory device, assess home safety, identify additional equipment needs, and establish a functional maintenance program that will increase ability of patient to remain at home. [] Home with outpatient PT [] [] SNF for continued rehabilitation [] [] Penitentiary Care [] [] SNF versus LTC based on ability to participate and progress [] TREATMENT CODE/TIME: 20393 x 20 minutes, 75874 x 33 minutes beginning at 10:20 AM. Thank you for the opportunity to participate in the care of this patient. Bharti Galvan PT, DPT, CLT [facility] [place], [place]
== END 2022-06-22 14:26 | disposition home or self-care (01) ==
LOC: ER 21:28 → MS 21:42
PROVIDERS: Admitting Provider Student in an Organized Health Care Education/Training Program; Emergency Provider Nurse Practitioner Family; Visit Provider Student in an Organized Health Care Education/Training Program
PROC: (CPT 27814; principal; 2022-06-21 14:45)
DX: S82.842A Displaced bimalleolar fracture of left lower leg, initial encounter for closed fracture (principal); W19.XXXA Unspecified fall, initial encounter; E11.9 Type 2 diabetes mellitus without complications; E03.9 Hypothyroidism, unspecified; Z20.822 Contact with and (suspected) exposure to COVID-19
CPT/HCPCS: 27814; 27829; 76000; 80053; 82306; 85027; 87635; 96365; 96366; 96367; 96374; 96375; 96376; 97162; 97530; 99285; 73600; 73610; 73700; 82040; 83036; 84439; 84443; G0378; J0131; J0690; J1100; J1170; J1885; J2250; J2405; J2704; J3010

== ENCOUNTER 2022-07-03 15:00 | Outpatient (CLI) | payer BC, SELFPAY ==
--- NOTE | 2022-07-03 14:45 | DI.RAD_ITS ---
Exam(s) XR ANKLE LT COMPLETE EXAM: XR ANKLE LT COMPLETE CLINICAL HISTORY: left ankle fracture. TECHNIQUE: 2D digital imaging was performed. COMPARISON: CT CT LOWER EXTREMITY LT WO from 06/20/2022 CR,XR XR ANKLE LT COMPLETE from 06/20/2022 XA XR ANKLE LT 2V from 06/21/2022 FINDINGS: Again noted is a recently placed lateral fixation plate across the distal fibular fracture site and t his appears satisfactory position. Also noted is a horizontal XXXX screw-type device at the metaphysis-epiphysis junction of the tibial plafond, similar appearance apposition to the intraoperative images of 06/21/2022. Talar dome appear s unremarkable. Small fracture fragment off the posterior malleolus is again evident. Large enthesophyte posterior c alcaneus attachment site of the Achilles tendon is again noted. IMPRESSION: As above. DATA REPOSITORY: RADIATION DOSE DELIVERED:
== END 2022-07-03 15:01 | disposition home or self-care (01) ==
LOC: DIORS 15:00
PROVIDERS: Visit Provider Physician Assistant
DX: S82.842A Displaced bimalleolar fracture of left lower leg, initial encounter for closed fracture (principal); W19.XXXA Unspecified fall, initial encounter
CPT/HCPCS: 73610

== ENCOUNTER 2022-07-31 14:37 | Outpatient (CLI) | payer BC, SELFPAY ==
--- NOTE | 2022-07-31 14:30 | DI.RAD_ITS ---
Exam(s) XR ANKLE LT COMPLETE EXAM: XR ANKLE LT COMPLETE CLINICAL HISTORY: S/P ORIF L ANKLE TECHNIQUE: 2D digital imaging was performed. Three views. COMPARISON: CR XR ANKLE LT COMPLETE from 07/03/2022 FINDINGS: BONES: No change in fracture or hardware alignment. No new abnormalities. No bony destructive lesio n is seen. Heel spur. JOINTS:The ankle mortise is normally aligned. SOFT TISSUE: Swelling around the malleoli. IMPRESSION: Stable appearance. DATA REPOSITORY: RADIATION DOSE DELIVERED:
== END 2022-07-31 14:38 | disposition home or self-care (01) ==
LOC: DIORS 14:38
PROVIDERS: Visit Provider Student in an Organized Health Care Education/Training Program
DX: Z87.81 Personal history of (healed) traumatic fracture (principal); Z98.890 Other specified postprocedural states
CPT/HCPCS: 73610

== ENCOUNTER 2022-09-11 11:05 | Outpatient (CLI) | payer BC, SELFPAY ==
--- NOTE | 2022-09-11 10:45 | DI.RAD_ITS ---
Exam(s) XR ANKLE LT COMPLETE EXAM: XR ANKLE LT COMPLETE CLINICAL HISTORY: S/P ORIF L ANKLE FX. TECHNIQUE: 2D digital imaging was performed. Three images were obtained. AP, lateral and oblique vi ews were obtained. COMPARISON: CR XR ANKLE LT COMPLETE from 07/31/2022 FINDINGS: BONES: There are stable post operative changes present. No new fracture or dislocation. There is an enthesophyte at the posterior calcaneus. There is a small plantar calcaneal spur. JOINTS: Mild degenerative changes are seen at the talonavicular joint. The joint spaces are otherwis e stable. SOFT TISSUE: Normal. IMPRESSION: Stable postoperative changes. DATA REPOSITORY: RADIATION DOSE DELIVERED:
== END 2022-09-11 11:06 | disposition home or self-care (01) ==
LOC: DIORS 11:05
PROVIDERS: Visit Provider Student in an Organized Health Care Education/Training Program
DX: Z87.81 Personal history of (healed) traumatic fracture (principal); Z98.890 Other specified postprocedural states
CPT/HCPCS: 73610

== ENCOUNTER 2023-07-09 14:44 | Outpatient (CLI) | payer OTHER, SELFPAY ==
--- NOTE | 2023-07-09 15:13 | DI.RAD_ITS ---
Exam(s) XR ANKLE LT COMPLETE EXAM: XR ANKLE LT COMPLETE CLINICAL HISTORY: LEFT ANKLE PAIN. TECHNIQUE: 2D digital imaging was performed. Three images were obtained. AP, lateral and oblique vi ews were obtained. COMPARISON: CR XR ANKLE LT COMPLETE from 09/11/2022 FINDINGS: BONES: There are stable post operative changes present. No new fracture or dislocation. The fibular fractures well healed. There is a large enthesophyte at the posterior calcaneus. There is a small p lantar calcaneal spur. JOINTS: The joint spaces are well maintained. SOFT TISSUE: Normal. IMPRESSION: Stable postoperative changes. DATA REPOSITORY: RADIATION DOSE DELIVERED:
== END 2023-07-09 14:45 | disposition home or self-care (01) ==
LOC: DIORS 14:44
PROVIDERS: Visit Provider Student in an Organized Health Care Education/Training Program
DX: Z98.890 Other specified postprocedural states (principal); Z87.81 Personal history of (healed) traumatic fracture
CPT/HCPCS: 73610